=== PATIENT | male | born 1995 | race Two or more races ===

== ENCOUNTER 2021-11-17 09:33 | Emergency (ER) | payer SELFPAY ==
[~2021-11-17] VITALS: Ht 182.9 cm; Wt 117.9 kg
[2021-11-17 11:48] VITALS: BP 129/81
== END 2021-11-17 11:59 | disposition home or self-care (01) ==
LOC: ER 09:33
DX: S46.912A Strain of unspecified muscle, fascia and tendon at shoulder and upper arm level, left arm, initial encounter (principal); J45.909 Unspecified asthma, uncomplicated; X58.XXXA Exposure to other specified factors, initial encounter; Y93.89 Activity, other specified; Y92.89 Other specified places as the place of occurrence of the external cause; Y99.8 Other external cause status
CPT/HCPCS: 73030

== ENCOUNTER 2023-10-29 11:13 | Emergency (ER) | payer OTHER ==
[~2023-10-29] VITALS: Ht 182.9 cm; Wt 131.8 kg
[2023-10-29 12:00] VITALS: BP 111/49; PULSE 95; RESP 20; O2SAT 98
[2023-10-29] MEDS ORDERED: IBUP-1456 PO (12:10)
[2023-10-29 12:13] VITALS: TEMP 97.3
[2023-10-29] MEDS: IBUPROFEN 800 MG TAB PO ONE (12:13)
== END 2023-10-29 12:17 | disposition home or self-care (01) ==
LOC: ER 11:13
DX: S93.492A Sprain of other ligament of left ankle, initial encounter (principal); J45.909 Unspecified asthma, uncomplicated; Z79.899 Other long term (current) drug therapy; X58.XXXA Exposure to other specified factors, initial encounter; Y93.01 Activity, walking, marching and hiking; Y92.89 Other specified places as the place of occurrence of the external cause; Y99.8 Other external cause status
CPT/HCPCS: 73610

== ENCOUNTER 2024-05-12 02:05 | Emergency (ER) | payer MEDICAID, OTHER ==
[~2024-05-12] VITALS: Ht 182.9 cm; Wt 138.5 kg
[~2024-05-12 02:05] MED LIST: IBUP-1456 PO
[2024-05-12 02:40] VITALS: PULSE 120; RESP 20; O2SAT 95
[2024-05-12] MEDS: HYDROcodone-ACET 5/325MG TAB PO ONE (02:43)
[2024-05-12] MEDS: AMOXICILLIN/CLAVUL 875 MG TAB PO ONE (02:43)
[2024-05-12] MEDS: TETANUS-DIPTH-ACEL PERTUSSIS 0.5ML SYR Tdap IM ONE (02:45)
[2024-05-12 03:35] VITALS: BP 145/85; PULSE 108; RESP 18; TEMP 98; O2SAT 95
== END 2024-05-12 02:33 | disposition short-term general hospital (02) ==
LOC: ER 02:05
DX: S01.312A Laceration without foreign body of left ear, initial encounter (principal); S01.412A Laceration without foreign body of left cheek and temporomandibular area, initial encounter; J45.909 Unspecified asthma, uncomplicated; Z79.899 Other long term (current) drug therapy; W54.0XXA Bitten by dog, initial encounter; Y93.89 Activity, other specified; Y92.89 Other specified places as the place of occurrence of the external cause; Y99.8 Other external cause status
CPT/HCPCS: 90471; 90715